=== PATIENT | male | born 1975 | race Two or more races ===

== ENCOUNTER 2022-06-08 10:44 | Emergency (ER) | payer SELFPAY ==
[~2022-06-08] VITALS: Ht 167.6 cm; Wt 81.6 kg
--- NOTE | 2022-06-08 11:10 | NUR ---
BIBS C/O ABDOMINAL PAIN (EPIGASTRIC, RUQ),FEVER SINCE YESTERDAY, [employer] ALSO C/O COUGH AND CONGESTION FOR MONTHS. AMBULATORY, PLACED ON BED, IN PAIN 10/10 PS
--- NOTE | 2022-06-08 11:54 | NUR ---
BLOOD DRAWN AND URINE SAMPLE SENT TO LAB
[2022-06-08] MEDS ORDERED: MORPHINE SULFATE INJ 4 MG/ML DISP.SYRIN ONE (11:56)
[2022-06-08] MEDS ORDERED: ONDANSETRON HCL/PF 4 MG/2 ML VIAL ONE ×2 (11:56→14:05)
[2022-06-08] MEDS ORDERED: ONDANSETRON HCL/PF 4 MG/2 ML VIAL IVP ONE (12:00)
[2022-06-08] MEDS ORDERED: MORPHINE SULFATE INJ 2 MG/ML DISP.SYRIN IV ONE (12:00)
[2022-06-08 12:04] LABS: BASOPHILS % (AUTO) 0.3 % (0.0-2.0); EOSINOPHILS % (AUTO) 1.4 % (0.0-6.0); HEMATOCRIT 49 % (39-51); HEMOGLOBIN 16.9 g/dL (13.5-17.5); LYMPHOCYTES # (AUTO) 1.9 K/uL (0.8-4.8); LYMPHOCYTES % (AUTO) 31.9 % (20.0-44.0); MEAN CORPUSCULAR HGB CONC 34 g/dl (31.0-36.0); MEAN CORPUSCULAR VOLUME 84 fL (80-96); MONOCYTES # (AUTO) 0.7 K/uL (0.1-1.30); NEUTROPHILS # (AUTO) 3.4 K/uL (1.8-8.9); NEUTROPHILS % (AUTO) 55.4 % (43.0-81.0); PLATELET COUNT (AUTO) 197 K/uL (150-450); RED BLOOD CELL COUNT(AUTO) 5.85 MIL/uL (4.5-6.0); WHITE BLOOD COUNT (AUTO) 6.1 K/uL (4.3-11.0)
--- NOTE | 2022-06-08 12:04 | NUR ---
RETURNED FROM CT SCAN. 05/21 ABDOMINAL PAIN. MEDICATED ORDERED. SEE EMAR.
[2022-06-08 12:19] LABS: BILIRUBIN,URINE NEGATIVE (NEGATIVE); COLOR,URINE YELLOW (YELLOW); LEUKOCYTE ESTERASE ,URINE NEGATIVE (NEGATIVE); NITRITE, URINE NEGATIVE (NEGATIVE); PH,URINE 6.5 (5.0-8.0); PROTEIN,URINE 30 mg/dl (NEGATIVE); UGLUCOSE NEGATIVE (NEGATIVE)
[2022-06-08 12:21] LABS: BACTERIA,URINE None seen /HPF (None Seen); RBC,URINE 0-2 /HPF (0-2); SQUAMOUS EPITHELIAL CELL,UR Rare /HPF (None Seen); WBC,URINE 0-2 /HPF (0-3)
[2022-06-08 12:38] LABS: ALBUMIN 3.8 g/dL (3.4-5.0); BILIRUBIN,DIRECT 0.2 mg/dL (0.0-0.2); BILIRUBIN,TOTAL 0.9 mg/dL (0.2-1.0); CALCIUM, SERUM 8.4 mg/dL (8.5-10.1); POTASSIUM 3.3 mmol/L (3.5-5.1); TOTAL PROTEIN, SERUM 8.2 g/dL (6.4-8.2)
[2022-06-08] MEDS ORDERED: HYDROMORPHONE 1 MG/1 ML DISP.SYRIN ONE (13:22)
[2022-06-08] MEDS ORDERED: HYDROMORPHONE 1 MG/1 ML DISP.SYRIN IV ONE (13:30)
--- NOTE | 2022-06-08 14:09 | NUR ---
PT STARTED C/O NAUSEA S/P PAIN MEDICATION GIVEN. DR PRYOR AWARE. VERBAL ORDER FOR ZOFRAN 4MG IVP CARRIED OUT.
[2022-06-08] MEDS ORDERED: ONDANSETRON HCL/PF - ER 4 MG/2 ML VIAL IV ONE (14:30)
[2022-06-08] MEDS ORDERED: FAMO-131 PO (14:54)
[2022-06-08] MEDS ORDERED: MAG HYDROX/AL HYDROX/SIMETH 30 ML UDC ONE (14:56)
[2022-06-08] MEDS ORDERED: LIDOCAINE VISCOUS 2% UD 15 ML UDC ONE (14:56)
[2022-06-08] MEDS ORDERED: FAMOTIDINE (20 MG) 20 MG TABLET PO ONE (15:00)
[2022-06-08] MEDS ORDERED: MAG HYDROX/AL HYDROX/SIMETH 30 ML UDC PO ONE (15:00)
[2022-06-08] MEDS ORDERED: FAMOTIDINE (20 MG) 20 MG TABLET ONE (15:03)
--- NOTE | 2022-06-08 15:11 | NUR ---
IV removed. Catheter intact and site benign. Pressure and 4x4 applied to site. No bleeding noted.Patient discharged to home in stable condition. Written and verbal after care instructions given. Patient verbalizes understanding of instruction.
[2022-06-08 15:12] VITALS: BP 134/80
== END 2022-06-08 15:12 | disposition home or self-care (01) ==
LOC: ER 10:47
DX: R10.11 Right upper quadrant pain (principal); R10.13 Epigastric pain; R74.01 Elevation of levels of liver transaminase levels; K76.0 Fatty (change of) liver, not elsewhere classified; Z79.899 Other long term (current) drug therapy
CPT/HCPCS: 99284; 74176; 96374; 76705; 96375; 96376; 85025; 80048; 83690; 80076; 81001; 36415; J2270; J2405 ×3; J1170